=== PATIENT | female | born 1965 | race Caucasian/White ===

== ENCOUNTER 2017-10-15 09:40 | Emergency (ER) | payer OTHER ==
[2017-10-15 10:04] VITALS: BP 140/94
--- NOTE | 2017-10-15 10:07 | UC ---
Upper Extremity HPI - HPI Summary HPI Summary: 51 y/o female presents to the urgent c/o RT shoulder pain since last night around 1800. Pt reports she was horsing around with her and fell from standing position and landed on the floor and injured her RT shoulder. She applied ice and took an advil. This morning she couldn't raise her arm . Pain sharp, 10/10 w/ movement. Pt denies numbness or tingling sensation over RT arm, fever, SOB, chest pain, abdominal pain, N/V/D. She didn't hit her head or LOC. She is able to move elbow and hand. - History of Current Complaint Chief Complaint: UCUpperExtremity Stated Complaint: SHOULDER INJURY Time Seen by Provider: 10/15/17 10:05 Hx Obtained From: Patient Hx Last Menstrual Period: 10/09/17 ?: No Onset/Duration: Sudden Onset, Lasting Days - 1 day, Still Present Severity Initially: Moderate Severity Currently: Severe Pain Intensity: 10 Pain Scale Used: 0-10 Numeric Location Of Pain: Is Discrete @ - RT shoulder Character: Sharp Aggravating Factor(s): Movement, Lifting Alleviating Factor(s): Rest Associated Signs And Symptoms: Positive: Swelling, Redness, Bruising. Negative : Fever, Numbness/Tingling - Risk Factors Non-Orthopedic Risk Factor: Negative DVT Risk Factors: Negative Septic Arthritis Risk Factor: Negative - Allergies/Home Medications Allergies/Adverse Reactions: Allergies Allergy/AdvReac Type Severity Reaction Status Date / Time No Known Allergies Allergy Verified 02/07/14 08:18 Home Medications: Home Medications Multiple Vitamin [Multi Vitamin] 10/15/17 [History] PMH/Surg Hx/FS Hx/Imm Hx Previously Healthy: Yes Endocrine History: Hypothyroidism Cardiovascular History: Hypertension - Surgical History Surgical History: Yes Surgery Procedure, Year, and Place: see above - Family History Known Family History: Positive: Hypertension Family History: Hypothyrodism - Social History Occupation: Employed Full-time Lives: With Family Alcohol Use: Weekly Substance Use Type: None, Prescribed Substance Use Comment - Amount & Last Used: vicodin 5/325 q6h. last used 1930 on 02/10/14. Smoking Status (MU): Heavy Every Day Tobacco Smoker Type: Cigarettes Amount Used/How Often: 1/2 PPD Length of Time of Smoking/Using Tobacco: 28+ years Have You Smoked in the Last Year: Yes Household Exposure Type: Cigarettes Review of Systems Constitutional: Negative Skin: Negative Eyes: Negative ENT: Negative Respiratory: Negative Cardiovascular: Negative Gastrointestinal: Negative Genitourinary: Negative Motor: Negative Neurovascular: Negative Musculoskeletal: Other: - RT shoulder pain s/p fall Neurological: Negative Psychological: Negative Is Patient Immunocompromised?: No All Other Systems Reviewed And Are Negative: Yes Physical Exam Triage Information Reviewed: Yes Vital Signs: Initial Vital Signs Temp 99.1 F 10/15/17 09:57 Pulse 62 10/15/17 09:57 Resp 16 10/15/17 09:57 BP 140/94 10/15/17 09:57 Pulse Ox 99 10/15/17 09:57 - Additional Comments Vital Signs Reviewed: Yes General: well developed, well nourished female sitting in the examining table w / mild distress, Eyes: Positive: Conjunctiva Clear - PERRLA, EOMI, fundi grossly normal ENT: Positive: Normal ENT inspection, Hearing grossly normal, Pharynx normal, TMs normal Neck: Positive: Supple, Nontender, No Lymphadenopathy Respiratory: Positive: Chest non-tender, Lungs clear, Normal breath sounds, No respiratory distress Cardiovascular: Positive: RRR, No Murmur, Pulses Normal, Brisk Capillary Refill Abdomen Description: Positive: Nontender, No Organomegaly, Soft. Negative: CVA Tenderness (R), CVA Tenderness (L) Bowel Sounds: Positive: Present Musculoskeletal: Positive: Strength Intact, RT shoulder: The R shoulder is without obvious asymmetry or deformity when compared to the L shoulder. Distal clavicle with echymosi and bruising and tender to palpation . and mild swelling. no crepitus. No bony deformity or prominence of humeral head. NT to palpation of the bicipital groove . NT to palpation of the muscles of the sternocleidomastoid, pectoralis, tenderness over biceps/triceps, deltoid, trapezius, . Limited ROM due to pain. "empty can and drop arm test unable to perform due to pain. No axillary tenderness or lymphadenopathy. Normal sensation over the deltoid and fingers. Distal motor and neurovascular status is intact. Neurological Exam: Normal Psychological Exam: Normal Skin Exam: Normal Upper Extremity Course/Dx - Course Course Of Treatment: 51 y/o female presents to the urgent c/o RT shoulder pain since last night around 1800. Pt reports she was horsing around with her and fell from standing position and landed on the floor and injured her RT shoulder. She applied ice and took an advil. This morning she couldn't raise her arm . Pain sharp, 10/10 w/ movement. Pt denies numbness or tingling sensation over RT arm, fever, SOB, chest pain, abdominal pain, N/V/D. She didn' t hit her head or LOC. She is able to move elbow and hand.Hx obtained. Pt given a toradol Im inj and given a shoulder sling to alleviate pain.Pt tolerated well Im Inj and pain decreased. LF shoulder X-ray ordered: Impression: Minimally displaced fracture at hte distal Rt clavicle. Pt's Rx Naproxen PO and Vicodin PO for pain. Shoulder immobilized with a shoulder immobilizer. Advised to f/u with DR Maya in 1d day for further management. Pt understood and agreed with D/C instructions. zPt's BP elevated advised to decreased salt in diet, monitor BP and f/u with PCP.Left the clinic ambulating and A&OX3 - Differential Dx/Diagnosis Differential Diagnosis/HQI/PQRI: Contusion, Fracture (Closed), Strain, Sprain Provider Diagnoses: 1- RT shoudler pain s/p fall. 2- Minimally displaced fracture of the distal Rt clavicle Discharge - Discharge Plan Condition: Stable Disposition: HOME Prescriptions: Hydrocodone-Acetaminophen [Vicodin 5-300 mg] 1 tab PO Q8HR #12 tab MDD 1g/4g/day Naproxen [Naproxen 500 mg] 500 mg PO Q8H PRN #30 tab PRN Reason: Pain Patient Education Materials: Clavicle Fracture (ED), Low Sodium Diet (ED) Forms: *Work Release Referrals: Samy Maya MD [Medical Doctor] - 1 Day Ayana GALLEGOS,Tommy Leon [Primary Care Provider] - 3 Days Additional Instructions: 1-Please take medications as directed to alleviate pain and swelling. 2-Please apply ice, keep your shoulder immobilized with the immobilized 3- Please f/u with Orthopedic Dr Maya in 1-2 days for further evaluation and treatment. 4- Your BP is mildly elevated today please decrease salt in your, monitor BP and f/u with your PCP for further management
[2017-10-15] MEDS ORDERED: Ketorolac INJ* 60 MG/2 ML VIAL IM ONE (10:22)
--- NOTE | 2017-10-15 11:01 | RAD ---
INDICATION: Right shoulder pain after trauma the previous night COMPARISON: 5 TECHNIQUE: 5 views of the right shoulder 2 views of the right clavicle were obtained. FINDINGS: There is a minimally displaced fracture at the distal right clavicle. Remaining visualized bones are intact and appropriately aligned. IMPRESSION: DISTAL RIGHT CLAVICLE FRACTURE.
== END 2017-10-15 11:31 | disposition home or self-care (01) ==
LOC: UCEAST 09:40
DX: S42.031A Displaced fracture of lateral end of right clavicle, initial encounter for closed fracture (principal); W18.30XA Fall on same level, unspecified, initial encounter; Y93.83 Activity, rough housing and horseplay; Y92.9 Unspecified place or not applicable; M25.511 Pain in right shoulder; E03.9 Hypothyroidism, unspecified; I10 Essential (primary) hypertension; F17.210 Nicotine dependence, cigarettes, uncomplicated
CPT/HCPCS: 99212; G0463; J1885